=== PATIENT | male | born 1945 | race Caucasian/White ===

== ENCOUNTER 2016-10-06 09:33 | Inpatient (IN) | payer MEDICAID, OTHER, SELFPAY ==
[~2016-10-06] VITALS: Ht 180.3 cm; Wt 165.9 kg
[2016-10-06] MEDS ORDERED: DILTIAZEM 5 MG/ML, 5ML IVPush ONE (10:00)
[2016-10-06] MEDS ORDERED: PLEASE ENTER ALLERGIES MC SCH ×2 (10:00)
[2016-10-06] MEDS ORDERED: SODIUM CHLORIDE FLUSH 10ML SYR IVF ONE ×2 (10:00→10:30)
[2016-10-06] MEDS ORDERED: SIMV5TAB5 PO (10:02)
[2016-10-06] MEDS ORDERED: GLIP5TAB10 PO (10:02)
[2016-10-06] MEDS ORDERED: METO25TA9 PO (10:03)
[2016-10-06] MEDS ORDERED: ALLO300T PO (10:03)
[2016-10-06] MEDS ORDERED: LISI2.5T PO (10:04)
[2016-10-06] MEDS ORDERED: DILTIAZEM 5 MG/ML, 5ML ONE (10:16)
[2016-10-06 10:17] LABS: BLOOD UREA NITROGEN 28 mg/dL (7-18)
[2016-10-06] MEDS ORDERED: FUROSEMIDE 40 MG/4 ML ONE (10:17)
[2016-10-06 10:23] LABS: ASPARTATE AMINO TRANSFERASE 21 U/L (15-37)
[2016-10-06 10:30] LABS: IS PT STATUS REG ER OR PRE ER? YES
[2016-10-06] MEDS ORDERED: CEFTRIAXONE PMX 1GM/50ML 50 ML IVPB ONE (10:30)
[2016-10-06] MEDS ORDERED: FUROSEMIDE 40 MG/4 ML IV ONE (10:30)
[2016-10-06] MEDS ORDERED: SODIUM CHLORIDE 0.9% 1,000ML IVBOLUS ONE (10:30)
[2016-10-06] MEDS ORDERED: MAGNESIUM SULFATE PMX 2GM/50ML 50 ML IV ONE (10:30)
[2016-10-06] MEDS ORDERED: CEFTRIAXONE PMX 1GM/50ML 50 ML ONE (11:13)
[2016-10-06 13:19] VITALS: BP 104/64
[2016-10-06] MEDS ORDERED: BISACODYL 10 MG SUPP PR PRN (13:30)
[2016-10-06] MEDS ORDERED: ACETAMINOPHEN 325 MG TABLET PO PRN (13:30)
[2016-10-06] MEDS ORDERED: LABETALOL 5MG/ML 40ML VIAL IVPush PRN (13:30)
[2016-10-06] MEDS ORDERED: DOCUSATE 100 MG CAPSULE PO PRN (13:30)
[2016-10-06] MEDS ORDERED: POLYETHYLENE GLYCOL 17 GM PACKET PO PRN (13:30)
[2016-10-06 14:19] LABS: IS PT STATUS REG ER OR PRE ER? NO
[2016-10-06] MEDS: DILTIAZEM 125 MG in SODIUM CHLORIDE 0.9% 100 ML IV PRN (15:37)
[2016-10-06 15:50] VITALS: BP 101/68
[2016-10-06] MEDS ORDERED: INSULIN ASPART 100 UNITS/ML, PEN SQ-INSULIN SCH (16:00)
[2016-10-06] MEDS: INSULIN ASPART 100 UNITS/ML, PEN SQ-INSULIN SCH ×2 (16:00→20:55)
[2016-10-06] MEDS ORDERED: FUROSEMIDE 40 MG TABLET PO SCH (17:00)
[2016-10-06] MEDS: CEFTRIAXONE PMX 1GM/50ML 50 ML IV SCH (17:13)
[2016-10-06 17:32] VITALS: BP 99/65
[2016-10-06] MEDS ORDERED: MAGNESIUM SULFATE PMX 4GM/100M 100 ML IV ONE (18:00)
[2016-10-06 19:40] VITALS: BP 121/80
[2016-10-06 19:46] LABS: IS PT STATUS REG ER OR PRE ER? NO
[2016-10-06] MEDS: SIMVASTATIN 5 MG TABLET PO SCH (20:55)
[2016-10-06] MEDS: DABIGATRAN 150 MG CAPSULE PO SCH (20:55)
[2016-10-06] MEDS ORDERED: DIGOXIN 0.25 MG/ML, 2ML IVPush ONE (21:30)
[2016-10-07 01:13] VITALS: BP 109/78
[2016-10-07] MEDS: DIGOXIN 0.25 MG/ML, 2ML IVPush SCH ×2 (04:02→09:59)
[2016-10-07 05:33] LABS: ASPARTATE AMINO TRANSFERASE 36 U/L (15-37); BLOOD UREA NITROGEN 27 mg/dL (7-18)
[2016-10-07] MEDS ORDERED: ASPIRIN 325 MG TABLET EC PO SCH (06:00)
[2016-10-07] MEDS: INSULIN ASPART 100 UNITS/ML, PEN SQ-INSULIN SCH ×4 (07:00→20:45)
[2016-10-07 07:12] VITALS: BP 106/70
[2016-10-07] MEDS ORDERED: METOPROLOL SUCCINATE 25 MG TAB.ER.24H PO SCH ×2 (09:00→21:00)
[2016-10-07] MEDS ORDERED: FUROSEMIDE 40 MG/4 ML IV ONE (09:00)
[2016-10-07] MEDS: DILTIAZEM 125 MG in SODIUM CHLORIDE 0.9% 100 ML IV PRN (10:00)
[2016-10-07] MEDS: DABIGATRAN 150 MG CAPSULE PO SCH ×2 (10:00→20:43)
[2016-10-07 10:06] VITALS: BP 116/80
[2016-10-07] MEDS ORDERED: ALBUTEROL/IPRATROPIUM 2.5MG/0.5MG, 3 ML ONE (11:37)
[2016-10-07] MEDS ORDERED: ALBUTEROL/IPRATROPIUM 2.5MG/0.5MG, 3 ML NPPB PRN (12:00)
[2016-10-07 14:12] VITALS: BP 117/67
[2016-10-07] MEDS ORDERED: ALBUTEROL/IPRATROPIUM 2.5MG/0.5MG, 3 ML NPPB SCH (15:00)
[2016-10-07] MEDS: ALBUTEROL/IPRATROPIUM 2.5MG/0.5MG, 3 ML NPPB SCH ×2 (15:50→22:54)
[2016-10-07] MEDS: methylPREDNISolone SOD SUCC 125 MG/2 ML IVPush SCH ×2 (17:32→20:45)
[2016-10-07] MEDS: CEFTRIAXONE PMX 1GM/50ML 50 ML IV SCH (17:33)
[2016-10-07] MEDS: FUROSEMIDE 40 MG/4 ML IV SCH (17:34)
[2016-10-07 18:04] LABS: ABG COLLECTION SITE LEFT RADIAL; COLLATERAL CIRCULATION TESTING NORMAL
[2016-10-07] MEDS: SIMVASTATIN 5 MG TABLET PO SCH (20:44)
[2016-10-08] MEDS: ALBUTEROL/IPRATROPIUM 2.5MG/0.5MG, 3 ML NPPB SCH ×6 (02:25→22:03)
[2016-10-08] MEDS: methylPREDNISolone SOD SUCC 125 MG/2 ML IVPush SCH ×4 (03:30→20:46)
[2016-10-08 04:53] LABS: BLOOD UREA NITROGEN 28 mg/dL (7-18)
[2016-10-08] MEDS: INSULIN ASPART 100 UNITS/ML, PEN SQ-INSULIN SCH ×4 (05:57→20:49)
[2016-10-08] MEDS: FUROSEMIDE 40 MG/4 ML IV SCH ×2 (07:41→16:58)
[2016-10-08] MEDS: DABIGATRAN 150 MG CAPSULE PO SCH ×2 (09:03→20:47)
[2016-10-08] MEDS: CARVEDILOL 6.25 MG TABLET PO SCH ×3 (09:04→20:47)
[2016-10-08] MEDS: CAPTOPRIL 12.5 MG TABLET PO SCH ×3 (09:04→20:46)
[2016-10-08] MEDS ORDERED: DILTIAZEM 30 MG TABLET PO SCH (11:00)
[2016-10-08] MEDS: CEFTRIAXONE PMX 1GM/50ML 50 ML IV SCH (16:58)
[2016-10-08] MEDS: SIMVASTATIN 5 MG TABLET PO SCH (20:49)
[2016-10-09] MEDS: ALBUTEROL/IPRATROPIUM 2.5MG/0.5MG, 3 ML NPPB SCH ×6 (03:00→22:01)
[2016-10-09] MEDS: methylPREDNISolone SOD SUCC 125 MG/2 ML IVPush SCH ×4 (03:11→21:08)
[2016-10-09 05:12] LABS: BLOOD UREA NITROGEN 36 mg/dL (7-18)
[2016-10-09] MEDS: CARVEDILOL 6.25 MG TABLET PO SCH ×3 (06:19→21:08)
[2016-10-09] MEDS ORDERED: AMIODARONE 150 MG in DEXTROSE 5% 100 ML IV ONE (08:30)
[2016-10-09] MEDS: INSULIN ASPART 100 UNITS/ML, PEN SQ-INSULIN SCH ×4 (08:31→21:11)
[2016-10-09] MEDS: DABIGATRAN 150 MG CAPSULE PO SCH ×2 (08:32→21:08)
[2016-10-09] MEDS: CAPTOPRIL 12.5 MG TABLET PO SCH ×3 (08:32→21:07)
[2016-10-09] MEDS ORDERED: AMIODARONE 900 MG in DEXTROSE 5% 482 ML IV PRN (09:00)
[2016-10-09] MEDS ORDERED: FILTER 0.22 MICRON IV PRN (09:00)
[2016-10-09] MEDS: CEFTRIAXONE PMX 1GM/50ML 50 ML IV SCH (17:12)
[2016-10-09] MEDS: SIMVASTATIN 5 MG TABLET PO SCH (21:08)
[2016-10-10] MEDS: ALBUTEROL/IPRATROPIUM 2.5MG/0.5MG, 3 ML NPPB SCH ×6 (03:00→22:49)
[2016-10-10] MEDS: methylPREDNISolone SOD SUCC 125 MG/2 ML IVPush SCH ×4 (03:44→20:25)
[2016-10-10] MEDS: CARVEDILOL 6.25 MG TABLET PO SCH ×2 (06:02→20:26)
[2016-10-10] MEDS: CAPTOPRIL 12.5 MG TABLET PO SCH ×2 (07:43→20:26)
[2016-10-10] MEDS: DABIGATRAN 150 MG CAPSULE PO SCH ×2 (07:43→20:27)
[2016-10-10] MEDS: INSULIN ASPART 100 UNITS/ML, PEN SQ-INSULIN SCH ×4 (07:44→20:25)
[2016-10-10] MEDS: INSULIN DETEMIR 100 UNITS/ML, PEN SQ-INSULIN SCH ×2 (07:44→20:25)
[2016-10-10] MEDS ORDERED: CARVEDILOL 6.25 MG TABLET PO SCH (09:00)
[2016-10-10] MEDS: AMIODARONE 200 MG TABLET PO SCH ×2 (09:13→20:26)
[2016-10-10] MEDS: SPIRONOLACTONE 25 MG TABLET PO SCH (10:35)
[2016-10-10] MEDS: FUROSEMIDE 20 MG TABLET PO SCH (10:36)
[2016-10-10] MEDS: SIMVASTATIN 5 MG TABLET PO SCH (20:27)
[2016-10-11] MEDS: ALBUTEROL/IPRATROPIUM 2.5MG/0.5MG, 3 ML NPPB SCH ×4 (02:39→13:26)
[2016-10-11] MEDS: methylPREDNISolone SOD SUCC 125 MG/2 ML IVPush SCH ×2 (03:42→08:52)
[2016-10-11 04:52] LABS: BLOOD UREA NITROGEN 49 mg/dL (7-18)
[2016-10-11] MEDS: INSULIN ASPART 100 UNITS/ML, PEN SQ-INSULIN SCH ×2 (07:00→11:00)
[2016-10-11] MEDS: INSULIN DETEMIR 100 UNITS/ML, PEN SQ-INSULIN SCH (07:30)
[2016-10-11] MEDS ORDERED: INSU100I18 SQ-INSULIN (07:46)
[2016-10-11] MEDS ORDERED: AMIO200T42 PO (07:46)
[2016-10-11] MEDS ORDERED: CARV6.2512 PO (07:46)
[2016-10-11] MEDS ORDERED: SPIR25TA PO (07:46)
[2016-10-11] MEDS ORDERED: DABI150C PO (07:46)
[2016-10-11] MEDS ORDERED: IPRA3AMP NPPB (07:46)
[2016-10-11] MEDS ORDERED: CAPT12.52 PO (07:46)
[2016-10-11] MEDS ORDERED: FURO20TA3 PO (07:46)
[2016-10-11] MEDS: SPIRONOLACTONE 25 MG TABLET PO SCH (08:49)
[2016-10-11] MEDS: CARVEDILOL 6.25 MG TABLET PO SCH (08:49)
[2016-10-11] MEDS: AMIODARONE 200 MG TABLET PO SCH (08:50)
[2016-10-11] MEDS: CAPTOPRIL 12.5 MG TABLET PO SCH (08:50)
[2016-10-11] MEDS: FUROSEMIDE 20 MG TABLET PO SCH (08:51)
[2016-10-11] MEDS: DABIGATRAN 150 MG CAPSULE PO SCH (08:51)
[2016-10-11] MEDS ORDERED: PNEUMOCOCCAL 23 VACCINE IM-VACC ONE (11:30)
== END 2016-10-11 15:37 | DRG 291 ==
LOC: ED 11:02 → EDIP 11:03 → ED 11:13 → 5SO 13:14 → CCU 10-07 15:20
PROVIDERS: ADMIT Hospitalist; ATTEND Hospitalist
PROC: 5A09557 Assistance with Respiratory Ventilation, Greater than 96 Consecutive Hours, Continuous Positive Airway Pressure (ICD-10-PCS; principal; 2016-10-06)
DX: I11.0 Hypertensive heart disease with heart failure (principal); J96.21 Acute and chronic respiratory failure with hypoxia; J15.9 Unspecified bacterial pneumonia; D68.69 Other thrombophilia; E44.0 Moderate protein-calorie malnutrition; J44.0 Chronic obstructive pulmonary disease with (acute) lower respiratory infection; I50.43 Acute on chronic combined systolic (congestive) and diastolic (congestive) heart failure; I42.0 Dilated cardiomyopathy; I48.2 Chronic atrial fibrillation; I27.81 Cor pulmonale (chronic); D64.9 Anemia, unspecified; E66.01 Morbid (severe) obesity due to excess calories; E11.9 Type 2 diabetes mellitus without complications; E83.42 Hypomagnesemia; E87.5 Hyperkalemia; I25.5 Ischemic cardiomyopathy; G47.33 Obstructive sleep apnea (adult) (pediatric); I27.2 Other secondary pulmonary hypertension; I48.0 Paroxysmal atrial fibrillation; I49.3 Ventricular premature depolarization; M10.9 Gout, unspecified; Z51.5 Encounter for palliative care; Z66 Do not resuscitate; Z79.4 Long term (current) use of insulin; Z79.899 Other long term (current) drug therapy; Z87.891 Personal history of nicotine dependence; Z99.81 Dependence on supplemental oxygen
CPT/HCPCS: 36415; 36600; 71010; 80048; 80053; 80061; 81001; 82803; 82962; 83605; 83735; 83880; 84100; 84145; 84436; 84443; 84484; 85025; 85610; 85730; 87040; 87081; 87086; 90732; 93005; 93970; 94640; 94660; 96361; 96374; 96375; C8929; J0696; J1815; J1940; J7620; J0282; J1160; J2930; J3475; J7030; J7060